=== PATIENT | female | born 1945 | race Hispanic/Latino ===

== ENCOUNTER 2017-02-14 14:15 | Emergency (ER) | payer MEDICARE ==
[2017-02-14 14:31] VITALS: BP 95/54
== END 2017-02-14 21:30 | disposition left against medical advice (07) ==
LOC: EDSEX → ED 14:15
DX: I95.9 Hypotension, unspecified (principal); Z53.21 Procedure and treatment not carried out due to patient leaving prior to being seen by health care provider
CPT/HCPCS: 93005; 93010

== ENCOUNTER 2017-05-31 11:19 | Inpatient (IN) | payer MEDICARE ==
[2017-05-31] MEDS ORDERED: NACL 0.9% 500 ML 500 ML IV ONE (12:38)
[2017-05-31 13:08] LABS: Eosinophils % (Auto) 1.9 % (0.0-4.3); Hematocrit 28.3 % (30.3-42.9); Hemoglobin 9.5 gm/dl (10.1-14.3); Mean Corpuscular HGB Conc 34 % (30-34); Mean Corpuscular Hemoglobin 29 pg (28-32); Mean Corpuscular Volume 88 fl (79-97); Platelet Count 146 K/mm3 (140-440); Red Blood Count 3.23 M/mm3 (3.65-5.03); Red Cell Distribution Width 16.2 % (13.2-15.2); White Blood Count 5.4 K/mm3 (4.5-11.0)
[2017-05-31 13:17] LABS: Albumin 3.5 g/dL (3.9-5); Albumin/Globulin Ratio 1.3 %; Bilirubin,Total 0.2 mg/dL (0.1-1.2); Calcium 9.1 mg/dL (8.4-10.2); Chloride 102.5 mmol/L (98-107); Potassium 4.3 mmol/L (3.6-5.0); Total Protein 6.2 g/dL (6.3-8.2)
[2017-05-31 13:20] LABS: INR 1.05 (0.87-1.13)
--- NOTE | 2017-05-31 13:31 | XRay Report ---
CHEST TWO VIEWS: 05/31/17 11:19:00 CLINICAL: Shortness of breath. COMPARISON: 05/01/17 FINDINGS: Stable cardiomegaly with pacer leads in heart. Mild central vascular prominence. A band of subsegmental atelectasis in the left lung base is new compared to the prior exam. New obliteration of the right os phrenic angle. The upper lung castle are clear. IMPRESSION: Left lower lobe subsegmental atelectasis and possible small right pleural effusion.No CHF or pneumonia.
--- NOTE | 2017-05-31 20:27 | Emergency Department Report ---
ED Shortness of Breath HPI - General Chief Complaint: Dyspnea/Respdistress Stated Complaint: BUILD UP OF FLUID Time Seen by Provider: 05/31/17 20:26 Source: patient Mode of arrival: Wheelchair Limitations: No Limitations - History of Present Illness MD Complaint: shortness of breath, cough -: Sudden Improves With: oxygen, rest, bronchodilators Worsens With: lying flat, exertion, coughing Known History Of: COPD, congestive heart failure Context: recent URI, medication noncompliance (patient states she ran out of her carvedilol 3 days ago. ) Associated Symptoms: fever, cough, sputum production Treatments Prior to Arrival: oxygen, bronchodilator - Related Data Home Oxygen Therapy: Yes Home Oxygen Amount: 2 Liters Home Medications Medication Instructions Recorded Confirmed Last Taken ALBUTEROL Inhaler [ProAir HFA 2 puff INHALATION BID 07/21/16 04/02/17 Unknown Inhaler] Gabapentin 300 mg PO TID 07/21/16 04/02/17 Unknown Advair Diskus 500-50 mcg 500 mg INHALATION BID 04/02/17 04/02/17 Unknown Coreg 25 mg PO BID 04/02/17 04/02/17 Unknown Eliquis 5 mg PO BID 04/02/17 04/02/17 Unknown Ferrous Sulfate 325 mg PO BID 04/02/17 04/02/17 Unknown Flecainide 100 mg PO BID 04/02/17 04/02/17 Unknown Lasix TAB 10 mg PO DAILY 04/02/17 04/02/17 Unknown Percocet 5/325 mg 5 mg PO TID PRN 04/02/17 04/02/17 Unknown Potassium 10 meq PO DAILY 04/02/17 04/02/17 Unknown Vitamin D (Nf) 2.125 mg PO QWEEK 04/02/17 04/02/17 Unknown Zoloft 50 mg PO DAILY 04/02/17 04/02/17 Unknown amLODIPine 10 mg PO DAILY 04/02/17 04/02/17 Unknown ALBUTEROL Inhaler [ProAir HFA 2 puff IH QID PRN 05/01/17 05/01/17 05/01/17 Inhaler] ALPRAZolam [Xanax TAB] 0.5 mg PO BID PRN 05/01/17 05/01/17 05/01/17 Apixaban [Eliquis] 5 mg PO BID 05/01/17 05/01/17 05/01/17 Carisoprodol [Soma] 350 mg PO QHS 05/01/17 05/01/17 04/30/17 Carvedilol [Coreg] 25 mg PO BID 05/01/17 05/01/17 05/01/17 Flecainide [Tambocor] 100 mg PO Q12H 05/01/17 05/01/17 05/01/17 Fluticasone/Salmeterol [Advair 1 each IH Q12H 05/01/17 05/01/17 05/01/17 500-50 Diskus] Furosemide [Lasix TAB] 20 mg PO QDAY 05/01/17 05/01/17 05/01/17 Gabapentin [Neurontin] 100 mg PO Q8HR 05/01/17 05/01/17 Unknown Potassium Chloride [K-Dur] 10 meq PO QDAY 05/01/17 05/01/17 05/01/17 Sertraline [Zoloft] 50 mg PO QDAY 05/01/17 05/01/17 05/01/17 amLODIPine [Norvasc] 10 mg PO DAILY 05/01/17 05/01/17 05/01/17 Previous Rx's Medication Instructions Recorded Last Taken Type Fluticasone/Salmeterol [Advair 1 puff IH BID #1 disk.w.dev 06/27/14 Unknown Rx Diskus 500-50 mcg] Cephalexin [Keflex] 500 mg PO BID #5 day 04/05/17 Unknown Rx ALBUTEROL NEB's [Proventil 0.083% 2.5 mg IH Q4HRT PRN #30 nebu 05/03/17 Unknown Rx NEBS] Acetaminophen [Acetaminophen TAB] 325 mg PO Q4H PRN #30 tablet 05/03/17 Unknown Rx Arformoterol Nebu [Brovana Nebu] 15 mcg IH Q12HRT #30 day 05/03/17 Unknown Rx Azithromycin [Zithromax TAB] 250 mg PO QDAY #2 day 05/03/17 Unknown Rx Budesonide [Pulmicort Respules] 0.5 mg IH Q12HRT #30 day 05/03/17 Unknown Rx Potassium Chloride [K-Dur] 10 meq PO QDAY #7 day 05/03/17 Unknown Rx oxyCODONE [Roxicodone TAB] 5 mg PO Q6H PRN #30 tablet 05/03/17 Unknown Rx predniSONE [Deltasone] 10 mg PO QDAY #30 day 05/03/17 Unknown Rx Allergies Allergy/AdvReac Type Severity Reaction Status Date / Time chocolate flavor Allergy Shortness Verified 05/31/17 14:02 of Breath peanut Allergy Hives Verified 05/31/17 14:02 milk AdvReac Unknown Verified 05/31/17 14:02 morphine AdvReac Unknown Verified 05/31/17 14:02 animal dander Allergy Unknown Uncoded 07/09/15 11:56 dust Allergy Unknown Uncoded 07/09/15 11:56 mold Allergy Shortness Uncoded 07/09/15 11:56 of Breath peanuts Allergy Shortness Uncoded 07/09/15 11:56 of Breath perfumes Allergy Shortness Uncoded 07/09/15 11:56 of Breath ED Review of Systems ROS: Stated complaint: BUILD UP OF FLUID Other details as noted in HPI Comment: All other systems reviewed and negative Constitutional: see HPI, chills, fever, weakness Eyes: as per HPI ENT: as per HPI, throat pain, congestion Respiratory: see HPI, cough, shortness of breath, SOB with exertion, SOB at rest , wheezing Cardiovascular: as per HPI, edema Endocrine: no symptoms reported Gastrointestinal: as per HPI Genitourinary: as per HPI Musculoskeletal: as per HPI Skin: as per HPI Neurological: as per HPI Psychiatric: as per HPI Hematological/Lymphatic: as per HPI ED Past Medical Hx - Past Medical History Hx Hypertension: Yes Hx Congestive Heart Failure: Yes Hx Arthritis: Yes (RHEUMATOID) Hx Asthma: Yes Hx COPD: Yes Additional medical history: Afib, pacemaker - Surgical History Hx Pacemaker: Yes Additional Surgical History: Removal of skin cancer, Tubal Ligation. Parathyroidectomy, Pacemaker - Social History Smoking Status: Never Smoker Substance Use Type: None - Medications Home Medications: Home Medications Medication Instructions Recorded Confirmed Last Taken Type Fluticasone/Salmeterol [Advair 1 puff IH BID #1 disk.w.dev 06/27/14 04/02/17 Unknown Rx Diskus 500-50 mcg] ALBUTEROL Inhaler [ProAir HFA 2 puff INHALATION BID 07/21/16 04/02/17 Unknown History Inhaler] Gabapentin 300 mg PO TID 07/21/16 04/02/17 Unknown History Advair Diskus 500-50 mcg 500 mg INHALATION BID 04/02/17 04/02/17 Unknown History Coreg 25 mg PO BID 04/02/17 04/02/17 Unknown History Eliquis 5 mg PO BID 04/02/17 04/02/17 Unknown History Ferrous Sulfate 325 mg PO BID 04/02/17 04/02/17 Unknown History Flecainide 100 mg PO BID 04/02/17 04/02/17 Unknown History Lasix TAB 10 mg PO DAILY 04/02/17 04/02/17 Unknown History Percocet 5/325 mg 5 mg PO TID PRN 04/02/17 04/02/17 Unknown History Potassium 10 meq PO DAILY 04/02/17 04/02/17 Unknown History Vitamin D (Nf) 2.125 mg PO QWEEK 04/02/17 04/02/17 Unknown History Zoloft 50 mg PO DAILY 04/02/17 04/02/17 Unknown History amLODIPine 10 mg PO DAILY 04/02/17 04/02/17 Unknown History Cephalexin [Keflex] 500 mg PO BID #5 day 04/05/17 Unknown Rx ALBUTEROL Inhaler [ProAir HFA 2 puff IH QID PRN 05/01/17 05/01/17 05/01/17 History Inhaler] ALPRAZolam [Xanax TAB] 0.5 mg PO BID PRN 05/01/17 05/01/17 05/01/17 History Apixaban [Eliquis] 5 mg PO BID 05/01/17 05/01/17 05/01/17 History Carisoprodol [Soma] 350 mg PO QHS 05/01/17 05/01/17 04/30/17 History Carvedilol [Coreg] 25 mg PO BID 05/01/17 05/01/17 05/01/17 History Flecainide [Tambocor] 100 mg PO Q12H 05/01/17 05/01/17 05/01/17 History Fluticasone/Salmeterol [Advair 1 each IH Q12H 05/01/17 05/01/17 05/01/17 History 500-50 Diskus] Furosemide [Lasix TAB] 20 mg PO QDAY 05/01/17 05/01/1717 History Gabapentin [Neurontin] 100 mg PO Q8HR 05/01/17 05/01/17 Unknown History Potassium Chloride [K-Dur] 10 meq PO QDAY 05/01/17 05/01/17 05/01/17 History Sertraline [Zoloft] 50 mg PO QDAY 05/01/17 05/01/17 05/01/17 History amLODIPine [Norvasc] 10 mg PO DAILY 05/01/17 05/01/17 05/01/17 History ALBUTEROL NEB's [Proventil 0.083% 2.5 mg IH Q4HRT PRN #30 nebu 05/03/17 Unknown Rx NEBS] Acetaminophen [Acetaminophen TAB] 325 mg PO Q4H PRN #30 tablet 05/03/17 Unknown Rx Arformoterol Nebu [Brovana Nebu] 15 mcg IH Q12HRT #30 day 05/03/17 Unknown Rx Azithromycin [Zithromax TAB] 250 mg PO QDAY #2 day 05/03/17 Unknown Rx Budesonide [Pulmicort Respules] 0.5 mg IH Q12HRT #30 day 05/03/17 Unknown Rx Potassium Chloride [K-Dur] 10 meq PO QDAY #7 day 05/03/17 Unknown Rx oxyCODONE [Roxicodone TAB] 5 mg PO Q6H PRN #30 tablet 05/03/17 Unknown Rx predniSONE [Deltasone] 10 mg PO QDAY #30 day 05/03/17 Unknown Rx ED Physical Exam - General Limitations: No Limitations General appearance: alert, in no apparent distress - Head Head exam: Present: atraumatic, normocephalic - Eye Eye exam: Present: normal appearance - ENT ENT exam: Present: mucous membranes dry, other (mild erythema of the pharynx. No exudate) - Neck Neck exam: Present: normal inspection - Respiratory Respiratory exam: Present: wheezes, rales, rhonchi - Cardiovascular Cardiovascular Exam: Present: regular rate, normal rhythm, systolic murmur, other (bilateral lower extremity edema noted, 3+ pitting) - GI/Abdominal GI/Abdominal exam: Present: soft, normal bowel sounds - Extremities Exam Extremities exam: Present: normal inspection - Back Exam Back exam: Present: normal inspection - Neurological Exam Neurological exam: Present: alert, oriented X3 - Psychiatric Psychiatric exam: Present: normal affect, normal mood - Skin Skin exam: Present: warm, dry, intact, normal color. Absent: rash ED Course Vital Signs 05/31/17 05/31/17 05/31/17 12:28 19:45 20:30 Temperature 98.6 F Pulse Rate 88 Respiratory 18 20 Rate Blood Pressure 108/45 149/64 O2 Sat by Pulse 89 95 97 Oximetry 05/31/17 05/31/17 20:36 20:45 Temperature Pulse Rate 91 H Respiratory 21 Rate Blood Pressure 149/64 149/69 O2 Sat by Pulse 96 83 L Oximetry ED Medical Decision Making - Lab Data Result diagrams: 05/31/17 12:43 05/31/17 12:43 - EKG Data -: EKG Interpreted by Me - EKG Data Interpretation: no acute changes - Medical Decision Making Hospitalist consult for admission. Hospitalist agreed to admit. - Differential Diagnosis cp/ sob. chf exac. copd exac, Critical care attestation.: If time is entered above; I have spent that time in minutes in the direct care of this critically ill patient, excluding procedure time. ED Disposition Clinical Impression: Shortness of breath, Pleural effusion, COPD exacerbation, CHF (congestive heart failure), COPD (chronic obstructive pulmonary disease), Elevated brain natriuretic peptide (BNP) level Disposition: 09 OP ADMIT IP TO THIS HOSP Is pt being admited?: Yes Does the pt Need Aspirin: No Condition: Serious Time of Disposition: 23:13
[2017-05-31 22:29] LABS: Creatine Kinase MB 2.2 ng/mL (0.0-4.0)
[2017-05-31 22:30] LABS: Creatine Kinase 29 units/L (30-135)
[2017-05-31] MEDS ORDERED: LASIX IV ONE (22:59)
[2017-05-31] MEDS ORDERED: ASPIRIN PO ONE (23:02)
[2017-05-31 23:44] LABS: Bacteria,Urine 1+ /HPF (Negative); Bilirubin,Urine NEG (Negative); Blood,Urine NEG (Negative); Ketones,Urine NEG (Negative); Leukocyte Esterase,Urine TR (Negative); Nitrite,Urine NEG (Negative); Protein,Urine <15 mg/dL mg/dL (Negative); Urobilinogen,Urine < 2.0 mg/dL (<2.0)
--- NOTE | 2017-05-31 23:59 | History and Physical Report ---
History of Present Illness Date of examination: 05/31/17 History of present illness: 71-year-old woman with a history of hypertension, A. fib, COPD, spinal stenosis and sciatica comes to the emergency room with complaints of shortness of breath. She complains of dyspnea on exertion, lower extremity edema, PND and orthopnea, stated that her symptoms started yesterday. Also complaining of cough productive of yellow phlegm, wheezing Review Of Systems: Constitutional: no weight loss Ears, eyes, nose, mouth and throat: no nasal congestion, no nasal discharge, no sinus pressure, blurry vision, diplopia Neck: No neck pain or rigidity. Cardiovascular: no chest pain, orthopnea, palpitations Respiratory:+ shortness of breath, cough Gastrointestinal: no abdominal pain, hematochezia Genitourinary : no dysuria, frequency , hematuria Musculoskeletal: no muscle ache Integumentary: no rash, no pruritis Neurological: no parathesias, focal weakness Endocrine: no cold or heat intolerance, no polyuria or polydipsia Hematologic/Lymphatic: no easy bruising, no easy bleeding, no gland swelling Allergic/Immunologic: no urticaria, no angioedema. PAST SURGICAL HISTORY: Tubal ligation, parathyroidectomy, removal of skin cancer SOCIAL HISTORY: Denies alcohol, tobacco, drugs FAMILY HISTORY: Hypertension Medications and Allergies Allergies Allergy/AdvReac Type Severity Reaction Status Date / Time chocolate flavor Allergy Shortness Verified 05/31/17 14:02 of Breath peanut Allergy Hives Verified 05/31/17 14:02 milk AdvReac Unknown Verified 05/31/17 14:02 morphine AdvReac Unknown Verified 05/31/17 14:02 animal dander Allergy Unknown Uncoded 07/09/15 11:56 dust Allergy Unknown Uncoded 07/09/15 11:56 mold Allergy Shortness Uncoded 07/09/15 11:56 of Breath peanuts Allergy Shortness Uncoded 07/09/15 11:56 of Breath perfumes Allergy Shortness Uncoded 07/09/15 11:56 of Breath Home Medications Medication Instructions Recorded Confirmed Last Taken Type Fluticasone/Salmeterol [Advair 1 puff IH BID #1 disk.w.dev 06/27/14 04/02/17 Unknown Rx Diskus 500-50 mcg] ALBUTEROL Inhaler [ProAir HFA 2 puff INHALATION BID 07/21/16 04/02/17 Unknown History Inhaler] Gabapentin 300 mg PO TID 07/21/16 04/02/17 Unknown History Advair Diskus 500-50 mcg 500 mg INHALATION BID 04/02/17 04/02/17 Unknown History Coreg 25 mg PO BID 04/02/17 04/02/17 Unknown History Eliquis 5 mg PO BID 04/02/17 04/02/17 Unknown History Ferrous Sulfate 325 mg PO BID 04/02/17 04/02/17 Unknown History Flecainide 100 mg PO BID 04/02/17 04/02/17 Unknown History Lasix TAB 10 mg PO DAILY 04/02/17 04/02/17 Unknown History Percocet 5/325 mg 5 mg PO TID PRN 04/02/17 04/02/17 Unknown History Potassium 10 meq PO DAILY 04/02/17 04/02/17 Unknown History Vitamin D (Nf) 2.125 mg PO QWEEK 04/02/17 04/02/17 Unknown History Zoloft 50 mg PO DAILY 04/02/17 04/02/17 Unknown History amLODIPine 10 mg PO DAILY 04/02/17 04/02/17 Unknown History Cephalexin [Keflex] 500 mg PO BID #5 day 04/05/17 Unknown Rx ALBUTEROL Inhaler [ProAir HFA 2 puff IH QID PRN 05/01/17 05/01/17 05/01/17 History Inhaler] ALPRAZolam [Xanax TAB] 0.5 mg PO BID PRN 05/01/17 05/01/17 05/01/17 History Apixaban [Eliquis] 5 mg PO BID 05/01/17 05/01/17 05/01/17 History Carisoprodol [Soma] 350 mg PO QHS 05/01/17 05/01/17 04/30/17 History Carvedilol [Coreg] 25 mg PO BID 05/01/17 05/01/17 05/01/17 History Flecainide [Tambocor] 100 mg PO Q12H 05/01/17 05/01/17 05/01/17 History Fluticasone/Salmeterol [Advair 1 each IH Q12H 05/01/17 05/01/17 05/01/17 History 500-50 Diskus] Furosemide [Lasix TAB] 20 mg PO QDAY 05/01/17 05/01/17 05/01/17 History Gabapentin [Neurontin] 100 mg PO Q8HR 05/01/17 05/01/17 Unknown History Potassium Chloride [K-Dur] 10 meq PO QDAY 05/01/17 05/01/17 05/01/17 History Sertraline [Zoloft] 50 mg PO QDAY 05/01/17 05/01/17 05/01/17 History amLODIPine [Norvasc] 10 mg PO DAILY 05/01/17 05/01/17 05/01/17 History ALBUTEROL NEB's [Proventil 0.083% 2.5 mg IH Q4HRT PRN #30 nebu 05/03/17 Unknown Rx NEBS] Acetaminophen [Acetaminophen TAB] 325 mg PO Q4H PRN #30 tablet 05/03/17 Unknown Rx Arformoterol Nebu [Brovana Nebu] 15 mcg IH Q12HRT #30 day 05/03/17 Unknown Rx Azithromycin [Zithromax TAB] 250 mg PO QDAY #2 day 05/03/17 Unknown Rx Budesonide [Pulmicort Respules] 0.5 mg IH Q12HRT #30 day 05/03/17 Unknown Rx Potassium Chloride [K-Dur] 10 meq PO QDAY #7 day 05/03/17 Unknown Rx oxyCODONE [Roxicodone TAB] 5 mg PO Q6H PRN #30 tablet 05/03/17 Unknown Rx predniSONE [Deltasone] 10 mg PO QDAY #30 day 05/03/17 Unknown Rx Exam - Physical Exam Narrative exam: Gen. appearance: Patient lying in bed in no acute distress HEENT: Normocephalic/atraumatic, pupils equal round reactive to light, extra alkaline movement intact, no scleral icterus, no JVD or thyromegaly or nodule, neck is supple, mucous membrane moist, no erythema or exudate Heart: S1-S2, regular rate and rhythm Lungs: Crackles breathing comfortable Abdomen: Positive bowel sounds, nontender, nondistended, no organomegaly Extremities: 3+ edema up to knees, cyanosis, clubbing Neuro:: Oriented 3 , cranial nerves II-12 intact, speech, motor intact Skin: No rash, nodules, warm dry - Constitutional Vitals: Temp Pulse Resp BP Pulse Ox 98.6 F 83 13 147/63 93 05/31/17 12:28 05/31/17 21:00 05/31/17 21:00 05/31/17 23:30 05/31/17 23:30 Results - Labs CBC & Chem 7: 05/31/17 12:43 05/31/17 12:43 Labs: Abnormal lab results 05/31/17 05/31/17 05/31/17 Range/Units 12:43 12:43 12:43 RBC 3.23 L (3.65-5.03) M/mm3 Hgb 9.5 L (10.1-14.3) gm/dl Hct 28.3 L (30.3-42.9) % RDW 16.2 H (13.2-15.2) % [place] % (Auto) 10.7 H (0.0-7.3) % D-Dimer (0-234) ng/mlDDU VBG pH (7.320-7.420) BUN 31 H (7-17) mg/dL Creatinine 1.6 H (0.7-1.2) mg/dL AST 49 H (5-40) units/L ALT 81 H (7-56) units/L Alkaline Phosphatase 176 H (35-129) units/L Total Creatine Kinase (30-135) units/L CK-MB (CK-2) Rel Index (0-4) NT-Pro-B Natriuret Pep 1705 H (0-900) pg/mL Total Protein 6.2 L (6.3-8.2) g/dL Albumin 3.5 L (3.9-5) g/dL Urine WBC (Auto) (0.0-6.0) /HPF 05/31/17 05/31/17 05/31/17 Range/Units 12:43 21:51 21:51 RBC (3.65-5.03) M/mm3 Hgb (10.1-14.3) gm/dl Hct (30.3-42.9) % RDW (13.2-15.2) % [place] % (Auto) (0.0-7.3) % D-Dimer 297.20 H (0-234) ng/mlDDU VBG pH 7.255 L (7.320-7.420) BUN (7-17) mg/dL Creatinine (0.7-1.2) mg/dL AST (5-40) units/L ALT (7-56) units/L Alkaline Phosphatase (35-129) units/L Total Creatine Kinase 29 L (30-135) units/L CK-MB (CK-2) Rel Index 7.5 H (0-4) NT-Pro-B Natriuret Pep 1613 H (0-900) pg/mL Total Protein (6.3-8.2) g/dL Albumin (3.9-5) g/dL Urine WBC (Auto) (0.0-6.0) /HPF 05/31/17 Range/Units 22:46 RBC (3.65-5.03) M/mm3 Hgb (10.1-14.3) gm/dl Hct (30.3-42.9) % RDW (13.2-15.2) % [place] % (Auto) (0.0-7.3) % D-Dimer (0-234) ng/mlDDU VBG pH (7.320-7.420) BUN (7-17) mg/dL Creatinine (0.7-1.2) mg/dL AST (5-40) units/L ALT (7-56) units/L Alkaline Phosphatase (35-129) units/L Total Creatine Kinase (30-135) units/L CK-MB (CK-2) Rel Index (0-4) NT-Pro-B Natriuret Pep (0-900) pg/mL Total Protein (6.3-8.2) g/dL Albumin (3.9-5) g/dL Urine WBC (Auto) 9.0 H (0.0-6.0) /HPF - Imaging and Cardiology EKG: image reviewed Chest x-ray: image reviewed Assessment and Plan Assessment Acute and chronic CHF exacerbation, diastolic dysfunction Acute renal insufficiency COPD Hypertension A. fib Plan Admit to medicine Diurese with IV Lasix Continue beta gary, aspirin, FABIEN inhibitor secondary to increasing kidney function, check cardiac enzymes, echo, consult cardiology Continue appropriate outpatient medications DVT prophylaxis with eliquis
[2017-06-01] MEDS ORDERED: TYLENOL PO PRN ×2 (00:52→01:01)
[2017-06-01] MEDS ORDERED: ZOFRAN IV PRN (01:01)
[2017-06-01] MEDS ORDERED: DULCOLAX PR PRN (01:01)
[2017-06-01] MEDS ORDERED: MILK OF MAGNESIA PO PRN (01:01)
[2017-06-01] MEDS: LASIX IV SCH ×2 (07:00→17:43)
[2017-06-01] MEDS: NEURONTIN PO SCH ×3 (07:00→22:50)
[2017-06-01] MEDS: BROVANA NEBU IH SCH ×2 (07:10→21:57)
[2017-06-01] MEDS: PULMICORT IH SCH ×2 (07:10→21:57)
--- NOTE | 2017-06-01 08:56 | Progress Note ---
Assessment and Plan Assessment and plan: Patient is a 71-year-old woman with a plethora of comorbidities including CHF, COPD, atrial fibrillation, sick sinus syndrome who presents with shortness of breath. Two-view chest x-ray showed left lower lobe subsegmental atelectasis and possible small right pleural effusion, no CHF or pneumonia. Acute and chronic CHF exacerbation, diastolic dysfunction Acute renal insufficiency COPD Hypertension A. fib Plan Admit to medicine Diurese with IV Lasix Continue beta gary, aspirin, FABIEN inhibitor secondary to increasing kidney function, check cardiac enzymes, echo, consult cardiology Continue appropriate outpatient medications DVT prophylaxis with eliquis History Interval history: Patient was seen and examined. Follow-up on current diagnosis/shortness of breath symptoms. Overnight uneventful. Patient denies any chest pain, nausea/ vomiting or severe headaches. Imaging, nursing note, chart, labs and old chart reviewed. Discussed with patient. Hospitalist Physical - Physical exam Narrative exam: GEN: WDWN, NAD, AWAKE, ALERT, ORIENTATED 3 HEENT: NCAT, EOMI, PERRL, OP Clear NECK: supple, no adenopathy, no thyromegaly, no JVD CVS/HEART: RRR, NORMAL S1S2, NO JVD, pulses present bilaterally CHEST/LUNGS: Symmetrical chest expansion, diminished breath sounds but adequate air entry bilaterally GI/Abdomen: soft, NTND, good bowel sounds, no guarding or rebound /Bladder: no suprapubic tenderness, no CVA or paraspinal tenderness EXT/Skin: no c/c/e, no obvious rash MSK: FROM x 4 Neuro: CN 2-12 grossly intact, no new focal deficits Psych: calm - Constitutional Vitals: Temp Pulse Resp BP Pulse Ox 98.3 F 81 20 141/82 93 06/01/17 04:51 06/01/17 08:15 06/01/17 07:37 06/01/17 04:51 06/01/17 07:07 Results - Labs CBC & Chem 7: 05/31/17 12:43 05/31/17 12:43 Labs: Laboratory Last Values WBC 5.4 K/mm3 (4.5-11.0) 05/31/17 12:43 RBC 3.23 M/mm3 (3.65-5.03) L 05/31/17 12:43 Hgb 9.5 gm/dl (10.1-14.3) L 05/31/17 12:43 Hct 28.3 % (30.3-42.9) L 05/31/17 12:43 MCV 88 fl (79-97) 05/31/17 12:43 MCH 29 pg (28-32) 05/31/17 12:43 MCHC 34 % (30-34) 05/31/17 12:43 RDW 16.2 % (13.2-15.2) H 05/31/17 12:43 Plt Count 146 K/mm3 (140-440) 05/31/17 12:43 Lymph % (Auto) 23.6 % (13.4-35.0) 05/31/17 12:43 [place] % (Auto) 10.7 % (0.0-7.3) H 05/31/17 12:43 Eos % (Auto) 1.9 % (0.0-4.3) 05/31/17 12:43 Baso % (Auto) 1.0 % (0.0-1.8) 05/31/17 12:43 Lymph # 1.3 K/mm3 (1.2-5.4) 05/31/17 12:43 [place] # 0.6 K/mm3 (0.0-0.8) 05/31/17 12:43 Eos # 0.1 K/mm3 (0.0-0.4) 05/31/17 12:43 Baso # 0.1 K/mm3 (0.0-0.1) 05/31/17 12:43 Seg Neutrophils % 62.8 % (40.0-70.0) 05/31/17 12:43 Seg Neutrophils # 3.4 K/mm3 (1.8-7.7) 05/31/17 12:43 PT 14.2 Sec. (12.2-14.9) 05/31/17 12:43 INR 1.05 (0.87-1.13) 05/31/17 12:43 D-Dimer 297.20 ng/mlDDU (0-234) H 05/31/17 21:51 VBG pH 7.255 (7.320-7.420) L 05/31/17 12:43 Sodium 140 mmol/L (137-145) 05/31/17 12:43 Potassium 4.3 mmol/L (3.6-5.0) 05/31/17 12:43 Chloride 102.5 mmol/L (98-107) 05/31/17 12:43 Carbon Dioxide 28 mmol/L (22-30) 05/31/17 12:43 Anion Gap 14 mmol/L 05/31/17 12:43 BUN 31 mg/dL (7-17) H 05/31/17 12:43 Creatinine 1.6 mg/dL (0.7-1.2) H 05/31/17 12:43 Estimated GFR 32 ml/min 05/31/17 12:43 BUN/Creatinine Ratio 19 % 05/31/17 12:43 Glucose 99 mg/dL (65-100) 05/31/17 12:43 Lactic Acid 0.70 mmol/L (0.7-2.0) 05/31/17 17:12 Calcium 9.1 mg/dL (8.4-10.2) 05/31/17 12:43 Total Bilirubin 0.20 mg/dL (0.1-1.2) 05/31/17 12:43 AST 49 units/L (5-40) H 05/31/17 12:43 ALT 81 units/L (7-56) H 05/31/17 12:43 Alkaline Phosphatase 176 units/L (35-129) H 05/31/17 12:43 Total Creatine Kinase 29 units/L (30-135) L 05/31/17 21:51 CK-MB (CK-2) 2.2 ng/mL (0.0-4.0) 05/31/17 21:51 CK-MB (CK-2) Rel Index 7.5 (0-4) H 05/31/17 21:51 Troponin T < 0.010 ng/mL (0.00-0.029) 05/31/17 21:51 NT-Pro-B Natriuret Pep 1613 pg/mL (0-900) H 05/31/17 21:51 Total Protein 6.2 g/dL (6.3-8.2) L 05/31/17 12:43 Albumin 3.5 g/dL (3.9-5) L 05/31/17 12:43 Albumin/Globulin Ratio 1.3 % 05/31/17 12:43 Urine Color Straw (Yellow) 05/31/17 22:46 Urine Turbidity Clear (Clear) 05/31/17 22:46 Urine pH 5.0 (5.0-7.0) 05/31/17 22:46 Ur Specific [place] 1.010 (1.003-1.030) 05/31/17 22:46 Urine Protein <15 mg/dl mg/dL (Negative) 05/31/17 22:46 Urine Glucose (UA) Neg mg/dL (Negative) 05/31/17 22:46 Urine Ketones Neg mg/dL (Negative) 05/31/17 22:46 Urine Blood Neg (Negative) 05/31/17 22:46 Urine Nitrite Neg (Negative) 05/31/17 22:46 Urine Bilirubin Neg (Negative) 05/31/17 22:46 Urine Urobilinogen < 2.0 mg/dL (<2.0) 05/31/17 22:46 Ur Leukocyte Esterase Tr (Negative) 05/31/17 22:46 Urine WBC (Auto) 9.0 /HPF (0.0-6.0) H 05/31/17 22:46 Urine RBC (Auto) 1.0 /HPF (0.0-6.0) 05/31/17 22:46 U Epithel Cells (Auto) < 1.0 /HPF (0-13.0) 05/31/17 22:46 Urine Bacteria (Auto) 1+ /HPF (Negative) 05/31/17 22:46
[2017-06-01] MEDS ORDERED: LOVENOX SUB-Q SCH (10:00)
[2017-06-01] MEDS ORDERED: ADVAIR INHALATION SCH (10:00)
[2017-06-01] MEDS: COREG PO SCH ×2 (10:26→22:50)
[2017-06-01] MEDS: ELIQUIS PO SCH ×2 (10:26→22:50)
--- NOTE | 2017-06-01 11:52 | Consultation ---
History of Present Illness Consult date: 06/01/17 Consult reason: shortness of breath History of present illness: The patient is a 71-year-old woman who presented to the hospital with specific complaints of shortness of breath and productive cough. She was reported to have an oxygen saturation of 88% on hospital presentation. Cardiac consultation was requested for "CHF". The patient has a history of tachybradycardia syndrome, and underwent dual- chamber pacemaker implantation 10 months ago. At that time she also underwent cardiac catheterization which revealed angiographically normal coronary arteries , normal left ventricle systolic function with ejection fraction greater 55%. On this presentation, the ECG is an atrial paced rhythm, negative QRS complexes , borderline inferior Q waves with no acute ischemic changes. Chest x-ray reveals clear lungs with no evidence of edema or infiltrate. There is a small right pleural effusion of uncertain significance. Currently the patient is on the telemetry floor, is comfortable on bed rest, no complaints of chest pain or further shortness of breath. Past History Past Medical History: hypertension Medications and Allergies Allergies Allergy/AdvReac Type Severity Reaction Status Date / Time chocolate flavor Allergy Shortness Verified 05/31/17 14:02 of Breath peanut Allergy Hives Verified 05/31/17 14:02 milk AdvReac Unknown Verified 05/31/17 14:02 morphine AdvReac Unknown Verified 05/31/17 14:02 animal dander Allergy Unknown Uncoded 07/09/15 11:56 dust Allergy Unknown Uncoded 07/09/15 11:56 mold Allergy Shortness Uncoded 07/09/15 11:56 of Breath peanuts Allergy Shortness Uncoded 07/09/15 11:56 of Breath perfumes Allergy Shortness Uncoded 07/09/15 11:56 of Breath Home Medications Medication Instructions Recorded Confirmed Last Taken Type Fluticasone/Salmeterol [Advair 1 puff IH BID #1 disk.w.dev 06/27/14 04/02/17 Unknown Rx Diskus 500-50 mcg] ALBUTEROL Inhaler [ProAir HFA 2 puff INHALATION BID 07/21/16 04/02/17 Unknown History Inhaler] Gabapentin 300 mg PO TID 07/21/16 04/02/17 Unknown History Advair Diskus 500-50 mcg 500 mg INHALATION BID 04/02/17 04/02/17 Unknown History Coreg 25 mg PO BID 04/02/17 04/02/17 Unknown History Eliquis 5 mg PO BID 04/02/17 04/02/17 Unknown History Ferrous Sulfate 325 mg PO BID 04/02/17 04/02/17 Unknown History Flecainide 100 mg PO BID 04/02/17 04/02/17 Unknown History Lasix TAB 10 mg PO DAILY 04/02/17 04/02/17 Unknown History Percocet 5/325 mg 5 mg PO TID PRN 04/02/17 04/02/17 Unknown History Potassium 10 meq PO DAILY 04/02/17 04/02/17 Unknown History Vitamin D (Nf) 2.125 mg PO QWEEK 04/02/17 04/02/17 Unknown History Zoloft 50 mg PO DAILY 04/02/17 04/02/17 Unknown History amLODIPine 10 mg PO DAILY 04/02/17 04/02/17 Unknown History Cephalexin [Keflex] 500 mg PO BID #5 day 04/05/17 Unknown Rx ALBUTEROL Inhaler [ProAir HFA 2 puff IH QID PRN 05/01/17 05/01/17 05/01/17 History Inhaler] ALPRAZolam [Xanax TAB] 0.5 mg PO BID PRN 05/01/17 05/01/17 05/01/17 History Apixaban [Eliquis] 5 mg PO BID 05/01/17 05/01/17 05/01/17 History Carisoprodol [Soma] 350 mg PO QHS 05/01/17 05/01/17 04/30/17 History Carvedilol [Coreg] 25 mg PO BID 05/01/17 05/01/17 05/01/17 History Flecainide [Tambocor] 100 mg PO Q12H 05/01/17 05/01/17 05/01/17 History Fluticasone/Salmeterol [Advair 1 each IH Q12H 05/01/17 05/01/17 05/01/17 History 500-50 Diskus] Furosemide [Lasix TAB] 20 mg PO QDAY 05/01/17 05/01/17 05/01/17 History Gabapentin [Neurontin] 100 mg PO Q8HR 05/01/17 05/01/17 Unknown History Potassium Chloride [K-Dur] 10 meq PO QDAY 10/05/01/17 05/01/17 History Sertraline [Zoloft] 50 mg PO QDAY 05/01/17 05/01/17 05/01/17 History amLODIPine [Norvasc] 10 mg PO DAILY 05/01/17 05/01/17 05/01/17 History ALBUTEROL NEB's [Proventil 0.083% 2.5 mg IH Q4HRT PRN #30 nebu 05/03/17 Unknown Rx NEBS] Acetaminophen [Acetaminophen TAB] 325 mg PO Q4H PRN #30 tablet 05/03/17 Unknown Rx Arformoterol Nebu [Brovana Nebu] 15 mcg IH Q12HRT #30 day 05/03/17 Unknown Rx Azithromycin [Zithromax TAB] 250 mg PO QDAY #2 day 05/03/17 Unknown Rx Budesonide [Pulmicort Respules] 0.5 mg IH Q12HRT #30 day 05/03/17 Unknown Rx Potassium Chloride [K-Dur] 10 meq PO QDAY #7 day 05/03/17 Unknown Rx oxyCODONE [Roxicodone TAB] 5 mg PO Q6H PRN #30 tablet 05/03/17 Unknown Rx predniSONE [Deltasone] 10 mg PO QDAY #30 day 05/03/17 Unknown Rx Active Meds: Active Medications Acetaminophen (Tylenol) 650 mg PO Q4H PRN PRN Reason: Pain MILD(1-3)/Fever >100.5/KHAN Alprazolam (Xanax) 0.5 mg PO BID PRN PRN Reason: Anxiety Apixaban (Eliquis) 5 mg PO BID DAVID PRN Reason: Protocol Last Admin: 06/01/17 10:26 Dose: 5 mg Arformoterol Tartrate (Brovana Nebu) 15 mcg IH Q12HRT [facility] Last Admin: 06/01/17 07:10 Dose: 15 mcg Bisacodyl (Dulcolax) 10 mg AL QDAY PRN PRN Reason: Constipation unrelieved by MOM Budesonide (Pulmicort) 1 mg IH Q12HRT [facility] Last Admin: 06/01/17 07:10 Dose: 0.5 mg Carvedilol (Coreg) 25 mg PO BID [facility] Last Admin: 06/01/17 10:26 Dose: 25 mg Furosemide (Lasix) 40 mg IV BID@0600,1800 [facility] Last Admin: 06/01/17 07:00 Dose: 40 mg Gabapentin (Neurontin) 100 mg PO Q8HR [facility] Last Admin: 06/01/17 07:00 Dose: 100 mg Magnesium Hydroxide (Milk Of Magnesia) 30 ml PO Q4H PRN PRN Reason: Constipation Ondansetron HCl (Zofran) 4 mg IV Q8H PRN PRN Reason: N/V unrelieved by Reglan Review of Systems Cardiovascular: shortness of breath, no chest pain, no orthopnea, no palpitations, no rapid/irregular heart beat, no edema, no syncope, no lightheadedness Physical Examination Vital Signs Temp Pulse Resp BP Pulse Ox 98.6 F 88 18 108/45 89 05/31/17 12:28 05/31/17 12:28 05/31/17 12:28 05/31/17 12:28 05/31/17 12:28 General appearance: no acute distress HEENT: Positive: PERRL Neck: Positive: neck supple Cardiac: Positive: Reg Rate and Rhythm Lungs: Positive: Decreased Breath Sounds Neuro: Positive: Grossly Intact Abdomen: Positive: Soft Female genitourinary: deferred Skin: Positive: Clear Extremities: Present: edema (trace) Results 05/31/17 12:43 05/31/17 12:43 Cardiac Enzymes 05/31/17 05/31/17 Range/Units 12:43 21:51 AST 49 H (5-40) units/L CK-MB (CK-2) 2.2 (0.0-4.0) ng/mL Coagulation 05/31/17 Range/Units 12:43 PT 14.2 (12.2-14.9) Sec. INR 1.05 (0.87-1.13) CBC 05/31/17 Range/Units 12:43 WBC 5.4 (4.5-11.0) K/mm3 RBC 3.23 L (3.65-5.03) M/mm3 Hgb 9.5 L (10.1-14.3) gm/dl Hct 28.3 L (30.3-42.9) % Plt Count 146 (140-440) K/mm3 Lymph # 1.3 (1.2-5.4) K/mm3 [place] # 0.6 (0.0-0.8) K/mm3 Eos # 0.1 (0.0-0.4) K/mm3 Baso # 0.1 (0.0-0.1) K/mm3 Comprehensive Metabolic Panel 05/31/17 Range/Units 12:43 Sodium 140 (137-145) mmol/L Potassium 4.3 (3.6-5.0) mmol/L Chloride 102.5 (98-107) mmol/L Carbon Dioxide 28 (22-30) mmol/L BUN 31 H (7-17) mg/dL Creatinine 1.6 H (0.7-1.2) mg/dL Glucose 99 (65-100) mg/dL Calcium 9.1 (8.4-10.2) mg/dL AST 49 H (5-40) units/L ALT 81 H (7-56) units/L Alkaline Phosphatase 176 H (35-129) units/L Total Protein 6.2 L (6.3-8.2) g/dL Albumin 3.5 L (3.9-5) g/dL EKG interpretations - Telemetry EKG Rhythm: Sinus Rhythm Assessment and Plan - Patient Problems (1) Shortness of breath Current Visit: Yes Status: Acute Plan to address problem: Patient's presenting shortness of breath and hypoxemia is likely of pulmonary etiology. We'll get an echocardiogram for left ventricular function and valvular function reassessment. Otherwise, I'll recommend pulmonary consultation and assessment.
[2017-06-02] MEDS: PERCOCET 5/325 PO PRN ×2 (00:02→10:20)
[2017-06-02 05:36] LABS: Basophils % (Auto) 0.3 % (0.0-1.8); Eosinophils % (Auto) 0.1 % (0.0-4.3); Hematocrit 26.2 % (30.3-42.9); Hemoglobin 9.2 gm/dl (10.1-14.3); Mean Corpuscular HGB Conc 35 % (30-34); Mean Corpuscular Hemoglobin 30 pg (28-32); Mean Corpuscular Volume 85 fl (79-97); Platelet Count 157 K/mm3 (140-440); Red Blood Count 3.09 M/mm3 (3.65-5.03); Red Cell Distribution Width 15.9 % (13.2-15.2); White Blood Count 4.8 K/mm3 (4.5-11.0)
[2017-06-02] MEDS: LASIX IV SCH ×2 (05:39→20:00)
[2017-06-02] MEDS: NEURONTIN PO SCH ×3 (05:40→22:47)
[2017-06-02 05:55] LABS: Calcium 9.5 mg/dL (8.4-10.2); Chloride 96.7 mmol/L (98-107); Potassium 3.2 mmol/L (3.6-5.0)
[2017-06-02] MEDS: BROVANA NEBU IH SCH ×2 (07:12→20:50)
[2017-06-02] MEDS: PULMICORT IH SCH ×2 (07:12→20:50)
[2017-06-02] MEDS: ELIQUIS PO SCH ×2 (10:17→22:47)
[2017-06-02] MEDS: COREG PO SCH ×2 (10:17→22:47)
[2017-06-02] MEDS: XANAX PO PRN (10:20)
--- NOTE | 2017-06-02 10:36 | Progress Note ---
Assessment and Plan Shortness of breath COPD Hypertension Paroxysmal Afib on eliquis and flecainide as an outpatient Presence of Cardiac Pacemaker ([employer]) s/p atrial lead replacement at [facility] 03/2017 Conservative cardiac management. Subjective Date of service: 06/02/17 Interval history: Patient reports her breathing is better. Objective Vital Signs Temp Pulse Pulse Resp Resp BP Pulse Ox 06/02/17 08:00 88 06/02/17 07:32 85 20 06/02/17 07:30 97.3 F L 66 17 144/65 92 06/02/17 07:11 65 20 100 06/02/17 04:19 97.9 F 82 18 154/79 93 06/01/17 23:40 98.2 F 84 18 162/82 95 06/01/17 22:50 84 140/67 06/01/17 22:04 95 06/01/17 22:00 20 95 06/01/17 20:00 84 88 18 06/01/17 19:41 98.3 F 84 18 140/67 95 06/01/17 13:19 98.8 F 81 18 128/59 94 - Physical Examination General: No Apparent Distress HEENT: Positive: PERRL Cardiac: Positive: Other (paced) Lungs: Positive: Decreased Breath Sounds Neuro: Positive: Grossly Intact - Labs and Meds CBC 06/02/17 Range/Units 04:39 WBC 4.8 (4.5-11.0) K/mm3 RBC 3.09 L (3.65-5.03) M/mm3 Hgb 9.2 L (10.1-14.3) gm/dl Hct 26.2 L (30.3-42.9) % Plt Count 157 (140-440) K/mm3 Lymph # 0.9 L (1.2-5.4) K/mm3 [place] # 0.5 (0.0-0.8) K/mm3 Eos # 0.0 (0.0-0.4) K/mm3 Baso # 0.0 (0.0-0.1) K/mm3 Comprehensive Metabolic Panel 06/02/17 Range/Units 04:39 Sodium 144 (137-145) mmol/L Potassium 3.2 L D (3.6-5.0) mmol/L Chloride 96.7 L (98-107) mmol/L Carbon Dioxide 32 H (22-30) mmol/L BUN 36 H (7-17) mg/dL Creatinine 1.3 H (0.7-1.2) mg/dL Glucose 134 H (65-100) mg/dL Calcium 9.5 (8.4-10.2) mg/dL - Imaging and Cardiology EKG: image reviewed
--- NOTE | 2017-06-02 14:00 | Progress Note ---
Assessment and Plan Assessment and plan: Patient is a 71-year-old woman with a plethora of comorbidities including CHF, COPD, atrial fibrillation, sick sinus syndrome who presents with shortness of breath. Two-view chest x-ray showed left lower lobe subsegmental atelectasis and possible small right pleural effusion, no CHF or pneumonia. -Acute hypoxic respiratory failure, poa, O2 wean off -Acute and chronic CHF: cardiology is following -Acute renal insufficiency/ckd 3, vasomotor nephro, poa -COPD: consult pulmonology -Hypertension with diastolic heart disease: continue antihypertensive, cardiac diet -A. fib: on Eliquis and flecanide -Hypokalemia: replace and recheck in am -mild malnutrition: consult invoice checker Plan Admit to medicine Diurese with IV Lasix Continue beta gary, aspirin, checked cardiac enzymes, echo done, consulted cardiology Continue appropriate outpatient medications DVT prophylaxis with eliquis per Cardiology, Dr. Guajardo: "Patient's echocardiogram shows normal left ventricular systolic function, ejection fraction 60-65%, mild to moderate mitral regurgitation. Cardiology workup is completed, recommend pulmonary evaluation of shortness of breath and hypoxemia." consulted Pulmonology History Interval history: Patient was seen and examined. Follow-up on current diagnosis/shortness of breath symptoms. Overnight uneventful. Patient denies any chest pain, nausea/ vomiting or severe headaches. Imaging, nursing note, chart, labs and old chart reviewed. Discussed with patient. Hospitalist Physical - Physical exam Narrative exam: GEN: WDWN, NAD, AWAKE, ALERT, ORIENTATED 3 HEENT: NCAT, EOMI, PERRL, OP Clear NECK: supple, no adenopathy, no thyromegaly, no JVD CVS/HEART: RRR, NORMAL S1S2, NO JVD, pulses present bilaterally CHEST/LUNGS: Symmetrical chest expansion, diminished breath sounds but adequate air entry bilaterally GI/Abdomen: soft, NTND, good bowel sounds, no guarding or rebound /Bladder: no suprapubic tenderness, no CVA or paraspinal tenderness EXT/Skin: no new c/c/e./rash MSK: FROM x 4 Neuro: CN 2-12 grossly intact, no new focal deficits Psych: calm - Constitutional Vitals: Temp Pulse Resp BP Pulse Ox 98.9 F 78 17 136/70 95 06/02/17 11:33 06/02/17 11:33 06/02/17 11:33 06/02/17 11:33 06/02/17 11:33 General appearance: Present: no acute distress Results - Labs CBC & Chem 7: 06/02/17 04:39 06/02/17 04:39 Labs: Laboratory Last Values WBC 4.8 K/mm3 (4.5-11.0) 06/02/17 04:39 RBC 3.09 M/mm3 (3.65-5.03) L 06/02/17 04:39 Hgb 9.2 gm/dl (10.1-14.3) L 06/02/17 04:39 Hct 26.2 % (30.3-42.9) L 06/02/17 04:39 MCV 85 fl (79-97) 06/02/17 04:39 MCH 30 pg (28-32) 06/02/17 04:39 MCHC 35 % (30-34) H 06/02/17 04:39 RDW 15.9 % (13.2-15.2) H 06/02/17 04:39 Plt Count 157 K/mm3 (140-440) 06/02/17 04:39 Lymph % (Auto) 19.6 % (13.4-35.0) 06/02/17 04:39 [place] % (Auto) 10.8 % (0.0-7.3) H 06/02/17 04:39 Eos % (Auto) 0.1 % (0.0-4.3) 06/02/17 04:39 Baso % (Auto) 0.3 % (0.0-1.8) 06/02/17 04:39 Lymph # 0.9 K/mm3 (1.2-5.4) L 06/02/17 04:39 [place] # 0.5 K/mm3 (0.0-0.8) 06/02/17 04:39 Eos # 0.0 K/mm3 (0.0-0.4) 06/02/17 04:39 Baso # 0.0 K/mm3 (0.0-0.1) 06/02/17 04:39 Seg Neutrophils % 69.2 % (40.0-70.0) 06/02/17 04:39 Seg Neutrophils # 3.3 K/mm3 (1.8-7.7) 06/02/17 04:39 PT 14.2 Sec. (12.2-14.9) 05/31/17 12:43 INR 1.05 (0.87-1.13) 05/31/17 12:43 D-Dimer 297.20 ng/mlDDU (0-234) H 05/31/17 21:51 VBG pH 7.255 (7.320-7.420) L 05/31/17 12:43 Sodium 144 mmol/L (137-145) 06/02/17 04:39 Potassium 3.2 mmol/L (3.6-5.0) L D 06/02/17 04:39 Chloride 96.7 mmol/L (98-107) L 06/02/17 04:39 Carbon Dioxide 32 mmol/L (22-30) H 06/02/17 04:39 Anion Gap 19 mmol/L 06/02/17 04:39 BUN 36 mg/dL (7-17) H 06/02/17 04:39 Creatinine 1.3 mg/dL (0.7-1.2) H 06/02/17 04:39 Estimated GFR 40 ml/min 06/02/17 04:39 BUN/Creatinine Ratio 28 % 06/02/17 04:39 Glucose 134 mg/dL (65-100) H 06/02/17 04:39 Lactic Acid 0.70 mmol/L (0.7-2.0) 05/31/17 17:12 Calcium 9.5 mg/dL (8.4-10.2) 06/02/17 04:39 Total Bilirubin 0.20 mg/dL (0.1-1.2) 05/31/17 12:43 AST 49 units/L (5-40) H 05/31/17 12:43 ALT 81 units/L (7-56) H 05/31/17 12:43 Alkaline Phosphatase 176 units/L (35-129) H 05/31/17 12:43 Total Creatine Kinase 29 units/L (30-135) L 05/31/17 21:51 CK-MB (CK-2) 2.2 ng/mL (0.0-4.0) 05/31/17 21:51 CK-MB (CK-2) Rel Index 7.5 (0-4) H 05/31/17 21:51 Troponin T < 0.010 ng/mL (0.00-0.029) 05/31/17 21:51 NT-Pro-B Natriuret Pep 1613 pg/mL (0-900) H 05/31/17 21:51 Total Protein 6.2 g/dL (6.3-8.2) L 05/31/17 12:43 Albumin 3.5 g/dL (3.9-5) L 05/31/17 12:43 Albumin/Globulin Ratio 1.3 % 05/31/17 12:43 Urine Color Straw (Yellow) 05/31/17 22:46 Urine Turbidity Clear (Clear) 05/31/17 22:46 Urine pH 5.0 (5.0-7.0) 05/31/17 22:46 Ur Specific [place] 1.010 (1.003-1.030) 05/31/17 22:46 Urine Protein <15 mg/dl mg/dL (Negative) 05/31/17 22:46 Urine Glucose (UA) Neg mg/dL (Negative) 05/31/17 22:46 Urine Ketones Neg mg/dL (Negative) 05/31/17 22:46 Urine Blood Neg (Negative) 05/31/17 22:46 Urine Nitrite Neg (Negative) 05/31/17 22:46 Urine Bilirubin Neg (Negative) 05/31/17 22:46 Urine Urobilinogen < 2.0 mg/dL (<2.0) 05/31/17 22:46 Ur Leukocyte Esterase Tr (Negative) 05/31/17 22:46 Urine WBC (Auto) 9.0 /HPF (0.0-6.0) H 05/31/17 22:46 Urine RBC (Auto) 1.0 /HPF (0.0-6.0) 05/31/17 22:46 U Epithel Cells (Auto) < 1.0 /HPF (0-13.0) 05/31/17 22:46 Urine Bacteria (Auto) 1+ /HPF (Negative) 05/31/17 22:46
[2017-06-02] MEDS ORDERED: K-DUR PO ONE ×2 (14:01→19:00)
--- NOTE | 2017-06-02 19:15 | Event Note ---
Date: 06/02/[address] WADE THANK YOU FOR ASKING US TO PARTICIPATE IN THE CARE OF THIS PATIENT. This is 71 year old white female admitted with shortness of breath and peripheral edema. Patient has history of CHF ,atrial fibrillation , COPD, Hypertension and renal insufficiency.Chest xray showed left lower lobe subsegmental atelectasis and possible small right pleural effusion.Patient has elevated D Dimer and elelvated Pro BNP. Patient on Eliquis. Obtaining venous doppler studies of legs and ventilation/Perfusion lung scan. Impression: 1. CHF Exacerbation. 2. Cardiac arrythmia, S/P defibrillator implantation. 3. Hypertension 4. COPD 5. Renal insufficiency. 6. Peripheral edema. PLAN : 1. O2 2 litres via nasal canula. 2. Brovanna/Budesonide aerosol treatments q 12 hours. 3. Venous doppler studies of legs. 4. Ventilaton and perfusion lung scan. 5. Continue Eliquis. 4. Ultrasound of chest.
[2017-06-02] MEDS: TAMBOCOR PO SCH (22:47)
[2017-06-03 06:04] LABS: Hematocrit 28.9 % (30.3-42.9); Hemoglobin 9.9 gm/dl (10.1-14.3); Mean Corpuscular HGB Conc 34 % (30-34); Mean Corpuscular Hemoglobin 29 pg (28-32); Mean Corpuscular Volume 86 fl (79-97); Platelet Count 150 K/mm3 (140-440); Red Blood Count 3.37 M/mm3 (3.65-5.03); Red Cell Distribution Width 16.4 % (13.2-15.2); White Blood Count 3.7 K/mm3 (4.5-11.0)
[2017-06-03 06:22] LABS: Calcium 9.6 mg/dL (8.4-10.2); Magnesium 1.9 mg/dL (1.7-2.3)
[2017-06-03 06:23] LABS: Chloride 96.1 mmol/L (98-107); Potassium 3.4 mmol/L (3.6-5.0)
[2017-06-03] MEDS: NEURONTIN PO SCH ×3 (06:41→21:47)
[2017-06-03] MEDS: LASIX IV SCH ×3 (06:41→18:04)
--- NOTE | 2017-06-03 09:21 | Progress Note ---
Assessment and Plan Shortness of breath/Hypoxia COPD Hypertension Paroxysmal Afib on eliquis and flecainide as an outpatient Presence of Cardiac Pacemaker ([employer]) s/p atrial lead replacement at [facility] 03/2017 Echocardiogram: normal left ventricular systolic function, ejection fraction 60- 65%, mild to moderate mitral regurgitation. Conservative cardiac management. Subjective Date of service: 06/03/17 Interval history: Patient denies chest pain and shortness of breath. Objective Vital Signs Temp Pulse Pulse Resp Resp BP Pulse Ox 06/03/17 08:00 74 06/03/17 07:29 97.7 F 69 18 160/83 98 06/03/17 04:28 98.3 F 69 18 137/63 90 06/03/17 00:28 98.3 F 71 18 132/61 94 06/02/17 22:47 76 137/66 06/02/17 22:00 18 06/02/17 21:06 75 20 06/02/17 20:51 70 20 06/02/17 20:00 71 06/02/17 19:57 98.6 F 76 18 137/66 98 06/02/17 16:19 75 18 118/65 94 06/02/17 11:33 98.9 F 78 17 136/70 95 - Physical Examination General: No Apparent Distress HEENT: Positive: PERRL Cardiac: Positive: Reg Rate and Rhythm Lungs: Positive: Decreased Breath Sounds Neuro: Positive: Grossly Intact Extremities: Absent: edema - Labs and Meds CBC 06/03/17 Range/Units 05:05 WBC 3.7 L (4.5-11.0) K/mm3 RBC 3.37 L (3.65-5.03) M/mm3 Hgb 9.9 L (10.1-14.3) gm/dl Hct 28.9 L (30.3-42.9) % Plt Count 150 (140-440) K/mm3 Comprehensive Metabolic Panel 06/03/17 Range/Units 05:05 Sodium 143 (137-145) mmol/L Potassium 3.4 L (3.6-5.0) mmol/L Chloride 96.1 L (98-107) mmol/L Carbon Dioxide 36 H (22-30) mmol/L BUN 39 H (7-17) mg/dL Creatinine 1.4 H (0.7-1.2) mg/dL Glucose 95 (65-100) mg/dL Calcium 9.6 (8.4-10.2) mg/dL - Imaging and Cardiology EKG: image reviewed
[2017-06-03] MEDS: PULMICORT IH SCH ×2 (09:47→20:25)
[2017-06-03] MEDS: BROVANA NEBU IH SCH ×2 (09:47→20:25)
[2017-06-03] MEDS: COREG PO SCH ×2 (10:31→21:47)
[2017-06-03] MEDS: PERCOCET 5/325 PO PRN (10:31)
[2017-06-03] MEDS: ELIQUIS PO SCH ×2 (10:31→21:47)
[2017-06-03] MEDS: TAMBOCOR PO SCH ×2 (10:31→21:47)
[2017-06-03] MEDS: XANAX PO PRN (10:31)
--- NOTE | 2017-06-03 11:34 | Nuclear Medicine Report ---
Nuclear medicine ventilation/perfusion lung scan. History: Shortness of breath elevated d-dimer, and peripheral edema. Findings: The ventilation study demonstrates decreased uptake in the left lower lung zone on the ventilation phase. The remainder of the lung castle is normal on the inhalation and equilibrium phase. However there is marked abnormal air trapping, most pronounced in the left lung in the lower lung zone although mild air trapping is seen in the mid and upper lungs on on the left. There is also significant air trapping in the lower lung zone on the right. The perfusion study demonstrates matching defects in the left lower and upper lung zones. No significant additional perfusion defects are seen. Impression: Matching ventilation/perfusion defects consistent with a low probability of embolic disease. Evidence of COPD.
--- NOTE | 2017-06-03 13:22 | XRay Report ---
AP CHEST :06/03/17 CLINICAL: Shortness of breath. COMPARISON:05/31/17 FINDINGS: Cardiomegaly with pacer leads in heart.Normal pulmonary vessels. The lungs are better expanded. No airspace disease. Continued blunting of the costophrenic angles. IMPRESSION: Cardiomegaly but no CHF. Bilateral small pleural effusions versus pleural scarring.
--- NOTE | 2017-06-03 15:18 | Ultrasound Report ---
ULTRASOUND BILATERAL CHEST: 06/03/17 09:29:00 CLINICAL: Questionable small pleural effusions on chest x-ray. FINDINGS: Ultrasound demonstrated no right pleural effusion and minimal left pleural fluid with a calculated volume = 3 cc. IMPRESSION: Tiny left pleural effusion and no right pleural effusion.
--- NOTE | 2017-06-03 16:59 | Progress Note ---
Assessment and Plan Assessment and plan: Patient is a 71-year-old woman with a plethora of comorbidities including CHF, COPD, atrial fibrillation, sick sinus syndrome who presents with shortness of breath. Two-view chest x-ray showed left lower lobe subsegmental atelectasis and possible small right pleural effusion, no CHF or pneumonia. -Acute hypoxic respiratory failure, poa, O2 wean off, Nebs, LABA, ICS -Acute and chronic Diastolic CHF: cardiology is following, appears more pulmonary than cardiac, continue lasix, daily weights, fluid restriants -Acute renal insufficiency/ckd 3, vasomotor nephro, poa -COPD: consult pulmonology -Hypertension with diastolic heart disease: continue antihypertensive, cardiac diet -A. fib: on Eliquis and flecanide -Hypokalemia: replace and recheck in am -mild malnutrition: consult woodenware assembler -DVT/GI prophy Plan of care discussed with the patient, anticipate discharge in am History Interval history: Patient seen and examined today, in no acute distress. reports improvement in symptoms Hospitalist Physical - Physical exam Narrative exam: GEN: WDWN, NAD, AWAKE, ALERT, ORIENTATED 3, Obese HEENT: NCAT, EOMI, PERRL, OP Clear NECK: supple, no adenopathy, no thyromegaly, no JVD CVS/HEART: RRR, NORMAL S1S2, NO JVD, pulses present bilaterally CHEST/LUNGS: Symmetrical chest expansion, diminished breath sounds bilaterally GI/Abdomen: soft, NTND, good bowel sounds, no guarding or rebound /Bladder: no suprapubic tenderness, no CVA or paraspinal tenderness EXT/Skin: no new c/c/e./rash MSK: FROM x 4 Neuro: CN 2-12 grossly intact, no new focal deficits Psych: calm - Constitutional Vitals: Temp Pulse Resp BP Pulse Ox 97.3 F L 68 18 145/76 98 06/03/17 12:38 06/03/17 12:38 06/03/17 12:38 06/03/17 12:38 06/03/17 07:29 General appearance: Present: no acute distress Results - Labs CBC & Chem 7: 06/03/17 05:05 06/03/17 05:05 Labs: Laboratory Last Values WBC 3.7 K/mm3 (4.5-11.0) L 06/03/17 05:05 RBC 3.37 M/mm3 (3.65-5.03) L 06/03/17 05:05 Hgb 9.9 gm/dl (10.1-14.3) L 06/03/17 05:05 Hct 28.9 % (30.3-42.9) L 06/03/17 05:05 MCV 86 fl (79-97) 06/03/17 05:05 MCH 29 pg (28-32) 06/03/17 05:05 MCHC 34 % (30-34) 06/03/17 05:05 RDW 16.4 % (13.2-15.2) H 06/03/17 05:05 Plt Count 150 K/mm3 (140-440) 06/03/17 05:05 Lymph % (Auto) 19.6 % (13.4-35.0) 06/02/17 04:39 [place] % (Auto) 10.8 % (0.0-7.3) H 06/02/17 04:39 Eos % (Auto) 0.1 % (0.0-4.3) 06/02/17 04:39 Baso % (Auto) 0.3 % (0.0-1.8) 06/02/17 04:39 Lymph # 0.9 K/mm3 (1.2-5.4) L 06/02/17 04:39 [place] # 0.5 K/mm3 (0.0-0.8) 06/02/17 04:39 Eos # 0.0 K/mm3 (0.0-0.4) 06/02/17 04:39 Baso # 0.0 K/mm3 (0.0-0.1) 06/02/17 04:39 Seg Neutrophils % 69.2 % (40.0-70.0) 06/02/17 04:39 Seg Neutrophils # 3.3 K/mm3 (1.8-7.7) 06/02/17 04:39 PT 14.2 Sec. (12.2-14.9) 05/31/17 12:43 INR 1.05 (0.87-1.13) 05/31/17 12:43 D-Dimer 297.20 ng/mlDDU (0-234) H 05/31/17 21:51 VBG pH 7.255 (7.320-7.420) L 05/31/17 12:43 Sodium 143 mmol/L (137-145) 06/03/17 05:05 Potassium 3.4 mmol/L (3.6-5.0) L 06/03/17 05:05 Chloride 96.1 mmol/L (98-107) L 06/03/17 05:05 Carbon Dioxide 36 mmol/L (22-30) H 06/03/17 05:05 Anion Gap 14 mmol/L 06/03/17 05:05 BUN 39 mg/dL (7-17) H 06/03/17 05:05 Creatinine 1.4 mg/dL (0.7-1.2) H 06/03/17 05:05 Estimated GFR 37 ml/min 06/03/17 05:05 BUN/Creatinine Ratio 28 % 06/03/17 05:05 Glucose 95 mg/dL (65-100) 06/03/17 05:05 Lactic Acid 0.70 mmol/L (0.7-2.0) 05/31/17 17:12 Calcium 9.6 mg/dL (8.4-10.2) 06/03/17 05:05 Magnesium 1.90 mg/dL (1.7-2.3) 06/03/17 05:05 Total Bilirubin 0.20 mg/dL (0.1-1.2) 05/31/17 12:43 AST 49 units/L (5-40) H 05/31/17 12:43 ALT 81 units/L (7-56) H 05/31/17 12:43 Alkaline Phosphatase 176 units/L (35-129) H 05/31/17 12:43 Total Creatine Kinase 29 units/L (30-135) L 05/31/17 21:51 CK-MB (CK-2) 2.2 ng/mL (0.0-4.0) 05/31/17 21:51 CK-MB (CK-2) Rel Index 7.5 (0-4) H 05/31/17 21:51 Troponin T < 0.010 ng/mL (0.00-0.029) 05/31/17 21:51 NT-Pro-B Natriuret Pep 1613 pg/mL (0-900) H 05/31/17 21:51 Total Protein 6.2 g/dL (6.3-8.2) L 05/31/17 12:43 Albumin 3.5 g/dL (3.9-5) L 05/31/17 12:43 Albumin/Globulin Ratio 1.3 % 05/31/17 12:43 Urine Color Straw (Yellow) 05/31/17 22:46 Urine Turbidity Clear (Clear) 05/31/17 22:46 Urine pH 5.0 (5.0-7.0) 05/31/17 22:46 Ur Specific [place] 1.010 (1.003-1.030) 05/31/17 22:46 Urine Protein <15 mg/dl mg/dL (Negative) 05/31/17 22:46 Urine Glucose (UA) Neg mg/dL (Negative) 05/31/17 22:46 Urine Ketones Neg mg/dL (Negative) 05/31/17 22:46 Urine Blood Neg (Negative) 05/31/17 22:46 Urine Nitrite Neg (Negative) 05/31/17 22:46 Urine Bilirubin Neg (Negative) 05/31/17 22:46 Urine Urobilinogen < 2.0 mg/dL (<2.0) 05/31/17 22:46 Ur Leukocyte Esterase Tr (Negative) 05/31/17 22:46 Urine WBC (Auto) 9.0 /HPF (0.0-6.0) H 05/31/17 22:46 Urine RBC (Auto) 1.0 /HPF (0.0-6.0) 05/31/17 22:46 U Epithel Cells (Auto) < 1.0 /HPF (0-13.0) 05/31/17 22:46 Urine Bacteria (Auto) 1+ /HPF (Negative) 05/31/17 22:46 - Imaging and Cardiology Chest x-ray: image reviewed (pleural effusion, very mild)
--- NOTE | 2017-06-03 20:59 | Progress Note ---
Assessment and Plan Patient resting on room air at this time. Not keeping her O2 as ordered.O2 saturation reported 100%. No acute respiratory distress at rest. V/Q scan reported low probability for pulmonary emboli. - Patient Problems (1) COPD exacerbation Current Visit: Yes Status: Acute Plan to address problem: O2 2 litres via nasal canula. Brovanna/Budesonide aerosol treatments q 12 hours. (2) CHF (congestive heart failure) Current Visit: Yes Status: Chronic Qualifiers: Plan to address problem: Management as per cardiology. (3) Hypertension Current Visit: No Status: Chronic Qualifiers: Hypertension type: essential hypertension Qualified Code(s): I10 - Essential (primary) hypertension Plan to address problem: Management as per primary care. (4) Acute kidney injury Current Visit: No Status: Resolved Plan to address problem: Management as per nephrology. (5) Atrial fibrillation Current Visit: No Status: Chronic Qualifiers: Atrial fibrillation type: chronic Qualified Code(s): I48.2 - Chronic atrial fibrillation Plan to address problem: Management as per cardiology. Subjective Date of service: 06/03/17 Interval history: Patient resting on room air at this time. Not keeping her O2 as ordered.O2 saturation reported 100%. No acute respiratory distress at rest. V/Q scan reported low probability for pulmonary emboli. Objective Vital Signs - 12hr 06/03/17 06/03/17 06/03/17 09:48 09:59 12:38 Temperature 97.3 F L Pulse Rate 68 Pulse Rate [ 83 84 Anterior Bilateral Throughout] Respiratory 18 Rate Respiratory 20 16 Rate [Anterior Bilateral Throughout] Blood Pressure 145/76 [Left] Blood Pressure 145/76 [Right] Constitutional: no acute distress, alert Eyes: non-icteric ENT: oropharynx moist Neck: supple, no lymphadenopathy Ascultation: Bilateral: diminished breath sounds Cardiovascular: irregular rhythm Gastrointestinal: normoactive bowel sounds, soft, non-tender Integumentary: normal Extremities: no cyanosis, edema Neurologic: normal mental status, non-focal exam, pupils equal and round, CN II- XII normal Psychiatric: depressed CBC and BMP: 06/03/17 05:05 06/03/17 05:05 ABG, PT/INR, D-dimer: PT/INR, D-dimer PT 14.2 Sec. (12.2-14.9) 05/31/17 12:43 INR 1.05 (0.87-1.13) 05/31/17 12:43 D-Dimer 297.20 ng/mlDDU (0-234) H 05/31/17 21:51 Abnormal lab findings: Abnormal Labs 05/31/17 05/31/17 05/31/17 12:43 12:43 12:43 WBC RBC 3.23 L Hgb 9.5 L Hct 28.3 L MCHC RDW 16.2 H Page % (Auto) 10.7 H Lymph # D-Dimer VBG pH Potassium Chloride Carbon Dioxide BUN 31 H Creatinine 1.6 H Glucose AST 49 H ALT 81 H Alkaline Phosphatase 176 H Total Creatine Kinase CK-MB (CK-2) Rel Index NT-Pro-B Natriuret Pep 1705 H Total Protein 6.2 L Albumin 3.5 L Urine WBC (Auto) 05/31/17 05/31/17 05/31/17 12:43 21:51 21:51 WBC RBC Hgb Hct MCHC RDW Page % (Auto) Lymph # D-Dimer 297.20 H VBG pH 7.255 L Potassium Chloride Carbon Dioxide BUN Creatinine Glucose AST ALT Alkaline Phosphatase Total Creatine Kinase 29 L CK-MB (CK-2) Rel Index 7.5 H NT-Pro-B Natriuret Pep 1613 H Total Protein Albumin Urine WBC (Auto) 05/31/17 06/02/17 06/02/17 22:46 04:39 04:39 WBC RBC 3.09 L Hgb 9.2 L Hct 26.2 L MCHC 35 H RDW 15.9 H Page % (Auto) 10.8 H Lymph # 0.9 L D-Dimer VBG pH Potassium 3.2 L D Chloride 96.7 L Carbon Dioxide 32 H BUN 36 H Creatinine 1.3 H Glucose 134 H AST ALT Alkaline Phosphatase Total Creatine Kinase CK-MB (CK-2) Rel Index NT-Pro-B Natriuret Pep Total Protein Albumin Urine WBC (Auto) 9.0 H 06/03/17 06/03/17 05:05 05:05 WBC 3.7 L RBC 3.37 L Hgb 9.9 L Hct 28.9 L MCHC RDW 16.4 H Page % (Auto) Lymph # D-Dimer VBG pH Potassium 3.4 L Chloride 96.1 L Carbon Dioxide 36 H BUN 39 H Creatinine 1.4 H Glucose AST ALT Alkaline Phosphatase Total Creatine Kinase CK-MB (CK-2) Rel Index NT-Pro-B Natriuret Pep Total Protein Albumin Urine WBC (Auto) Chest x-ray: report reviewed (Cardiomegaly, No CHF, Small pleural effusions.), image reviewed Additional Studies: V/Q scan reported Low probability for Pulmonary emboli.
[2017-06-04 06:14] LABS: Hematocrit 29.6 % (30.3-42.9); Hemoglobin 9.9 gm/dl (10.1-14.3); Mean Corpuscular HGB Conc 34 % (30-34); Mean Corpuscular Hemoglobin 28 pg (28-32); Mean Corpuscular Volume 85 fl (79-97); Platelet Count 160 K/mm3 (140-440); Red Blood Count 3.49 M/mm3 (3.65-5.03); Red Cell Distribution Width 15.8 % (13.2-15.2); White Blood Count 3.3 K/mm3 (4.5-11.0)
[2017-06-04 06:29] LABS: Calcium 9.2 mg/dL (8.4-10.2); Potassium 3.6 mmol/L (3.6-5.0)
[2017-06-04] MEDS: LASIX IV SCH (06:30)
[2017-06-04] MEDS: NEURONTIN PO SCH ×2 (06:31→13:40)
[2017-06-04] MEDS: PULMICORT IH SCH (08:15)
[2017-06-04] MEDS: BROVANA NEBU IH SCH (08:15)
--- NOTE | 2017-06-04 09:40 | Progress Note ---
Assessment and Plan Shortness of breath/Hypoxia COPD Hypertension Paroxysmal Afib on eliquis and flecainide as an outpatient Presence of Cardiac Pacemaker ([facility]) s/p atrial lead replacement at [facility] 03/2017 Echocardiogram: normal left ventricular systolic function, ejection fraction 60- 65%, mild to moderate mitral regurgitation. Recommendations: Discontinue IV lasix (patient is euvolemic on exam). May go home cardiac zarate Follow-up with [facility] as outpatient Subjective Date of service: 06/04/17 Principal diagnosis: COPD Interval history: Patient denies chest pain, SOB has improved. Objective Vital Signs Temp Pulse Pulse Resp Resp BP BP 06/04/17 08:28 98.2 F 68 18 06/04/17 04:17 98.6 F 75 18 133/80 06/03/17 23:53 98.4 F 70 18 129/70 06/03/17 20:30 79 18 06/03/17 20:27 98.6 F 78 18 123/74 06/03/17 20:20 77 18 06/03/17 20:00 69 06/03/17 12:38 97.3 F L 68 18 145/76 06/03/17 12:30 97.3 F L 67 18 145/76 06/03/17 09:59 84 16 06/03/17 09:48 83 20 BP Pulse Ox 06/04/17 08:28 135/72 94 06/04/17 04:17 94 06/03/17 23:53 94 06/03/17 20:30 06/03/17 20:27 95 06/03/17 20:20 06/03/17 20:00 06/03/17 12:38 145/76 06/03/17 12:30 97 06/03/17 09:59 06/03/17 09:48 - Physical Examination General: No Apparent Distress HEENT: Positive: PERRL Neck: Positive: neck supple Cardiac: Positive: Reg Rate and Rhythm Lungs: Positive: Normal Exam Neuro: Positive: Grossly Intact Abdomen: Positive: Soft Skin: Positive: Clear Extremities: Absent: edema - Labs and Meds CBC 06/04/17 Range/Units 04:55 WBC 3.3 L (4.5-11.0) K/mm3 RBC 3.49 L (3.65-5.03) M/mm3 Hgb 9.9 L (10.1-14.3) gm/dl Hct 29.6 L (30.3-42.9) % Plt Count 160 (140-440) K/mm3 Comprehensive Metabolic Panel 06/04/17 Range/Units 04:55 Sodium 143 (137-145) mmol/L Potassium 3.6 (3.6-5.0) mmol/L Chloride 96.0 L (98-107) mmol/L Carbon Dioxide 34 H (22-30) mmol/L BUN 38 H (7-17) mg/dL Creatinine 1.6 H (0.7-1.2) mg/dL Glucose 93 (65-100) mg/dL Calcium 9.2 (8.4-10.2) mg/dL - Imaging and Cardiology EKG: image reviewed
[2017-06-04] MEDS: TAMBOCOR PO SCH (09:53)
[2017-06-04] MEDS: ELIQUIS PO SCH (09:54)
[2017-06-04] MEDS: COREG PO SCH (09:54)
[2017-06-04] MEDS: XANAX PO PRN (09:58)
[2017-06-04] MEDS: PERCOCET 5/325 PO PRN (09:58)
--- NOTE | 2017-06-04 10:44 | Discharge Summary ---
Providers - Providers Date of Admission: 05/31/17 23:59 Attending physician: TISH SHEPPARD MD 06/01/17 01:01 Consult to Physician [CONS] Routine Consulting Provider: ARELI ROWE Reason For Exam: chf Place consult to:: Dr. Rowe Notified:: Mary Kay GRIMES Phone number called:: Was contact made?: Yes If yes, spoke with:: [facility] Time called:: 08:10 06/02/17 09:37 Consult to Physician [CONS] Routine Consulting Provider: MELONIE TOVAR Reason For Exam: COPD Place consult to:: pulmonary Notified:: office Phone number called:: [phone] Was contact made?: Yes Time called:: 09:45 Comment:: pt known to you 06/02/17 14:01 Consult to Dietitian/Nutrition [CONS] Routine Physician Instructions: Reason For Exam: Reason for Consult: Malnutrition Primary care physician: PIN ATTACHER Hospitalization Reason for admission: shortness of breath Condition: Stable Hospital course: Patient is a 71-year-old woman with a plethora of comorbidities including CHF, COPD, atrial fibrillation, sick sinus syndrome who presents with shortness of breath. Two-view chest x-ray showed left lower lobe subsegmental atelectasis and possible small right pleural effusion, no CHF or pneumonia. Patient was treated with IV abx and nebulizer with oxygen. she also received steriods, and was seen by pulmonary. today is doing better and is stable for discharge. -Acute hypoxic respiratory failure -Acute and chronic Diastolic CHF -Acute renal insufficiency/ckd 3, vasomotor -COPD -Hypertension with diastolic heart disease -A. fib -Hypokalemia -mild malnutrition Disposition: [id number]/[place]-[facility] Time spent for discharge: 35 mins Core Measure Documentation - Palliative Care Palliative Care/ Comfort Measures: Not Applicable - Core Measures Any of the following diagnoses?: none - VTE Discharge Requirements Deep Vein Thrombosis/Pulmonary Embolism Present on Admission: No Exam - Physical Exam Narrative exam: GEN: WDWN, NAD, AWAKE, ALERT, ORIENTATED 3, Obese HEENT: NCAT, EOMI, PERRL, OP Clear NECK: supple, no adenopathy, no thyromegaly, no JVD CVS/HEART: RRR, NORMAL S1S2, NO JVD, pulses present bilaterally CHEST/LUNGS: Symmetrical chest expansion, diminished breath sounds bilaterally GI/Abdomen: soft, NTND, good bowel sounds, no guarding or rebound /Bladder: no suprapubic tenderness, no CVA or paraspinal tenderness EXT/Skin: no new c/c/e./rash MSK: FROM x 4 Neuro: CN 2-12 grossly intact, no new focal deficits Psych: calm - Constitutional Vitals: Temp Pulse Resp BP Pulse Ox 98.2 F 68 18 135/72 94 06/04/17 08:28 06/04/17 09:54 06/04/17 08:28 06/04/17 09:54 06/04/17 08:28 Plan Activity: advance as tolerated, fall precautions Diet: low cholesterol Special Instructions: restrict fluid intake to (1200cc/day), record daily weights, record daily BP diary Follow up with: PRIMARY CARE, [Primary Care Provider] - 7 Days ARELI ROWE MD [Staff Physician] - 7 Days DEJA MENENDEZ MD [Staff Physician] - 7 Days MELONIE TOVAR MD [Staff Physician] - 7 Days Prescriptions: Prednisone [predniSONE 10 mg (6-Day Pack, 21 Tabs)] 10 mg PO .TAPER #1 tab.ds.pk
[2017-06-04 14:01] VITALS: BP 115/61
--- NOTE | 2017-06-04 16:54 | Vascular Lab Report ---
LOWER EXTREMITY VENOUS DUPLEX: REASON FOR EXAM: Swelling of the lower extremities. COMMENTS ON THE RIGHT: All veins visualized are freely compressible without evidence of internal echogenicity. Flow is spontaneous and phasic throughout. COMMENTS ON THE LEFT: Chronic recanalized thrombus noted in the femoral vein. The remaining veins visualized are freely compressible without evidence of internal echogenicity. Spontaneous and phasic flow is present proximally. IMPRESSION: Chronic DVT in the left lower extremity
== END 2017-06-04 14:32 | disposition home health service (06) | DRG 682 ==
LOC: ED 11:19 → 4A 23:59
PROVIDERS: ADMIT Internal Medicine; ATTEND Internal Medicine
DX: N17.0 Acute kidney failure with tubular necrosis (principal); J96.01 Acute respiratory failure with hypoxia; I50.33 Acute on chronic diastolic (congestive) heart failure; I13.2 Hypertensive heart and chronic kidney disease with heart failure and with stage 5 chronic kidney disease, or end stage renal disease; I82.592 Chronic embolism and thrombosis of other specified deep vein of left lower extremity; J44.1 Chronic obstructive pulmonary disease with (acute) exacerbation; E44.1 Mild protein-calorie malnutrition; J98.11 Atelectasis; I48.0 Paroxysmal atrial fibrillation; M06.9 Rheumatoid arthritis, unspecified; N18.3 Chronic kidney disease, stage 3 (moderate); I48.91 Unspecified atrial fibrillation; Z79.01 Long term (current) use of anticoagulants; Z99.81 Dependence on supplemental oxygen; Z79.899 Other long term (current) drug therapy; Z91.011 Allergy to milk products; Z88.5 Allergy status to narcotic agent; Z91.010 Allergy to peanuts; Z88.8 Allergy status to other drugs, medicaments and biological substances; Z91.018 Allergy to other foods; Z91.048 Other nonmedicinal substance allergy status; Z95.0 Presence of cardiac pacemaker; Z98.51 Tubal ligation status; Z85.828 Personal history of other malignant neoplasm of skin; Z79.2 Long term (current) use of antibiotics; Z82.49 Family history of ischemic heart disease and other diseases of the circulatory system; Z68.25 Body mass index [BMI] 25.0-25.9, adult
CPT/HCPCS: 36415; 71010; 71020; 76604; 78582; 80048; 80053; 81001; 82140; 82550; 82553; 82805; 83735; 83880; 84484; 85025; 85027; 85379; 85610; 87040; 87086; 93005; 93010; 93306; 93970; 94640; 96372; 96374; 99285; A9540; A9558; J1940; J2930

== ENCOUNTER 2017-07-11 13:51 | Emergency (ER) | payer MEDICARE ==
[2017-07-11 15:39] VITALS: BP 131/78
[2017-07-11 17:07] LABS: Hematocrit 30.5 % (30.3-42.9); Hemoglobin 10.6 gm/dl (10.1-14.3); Mean Corpuscular HGB Conc 35 % (30-34); Mean Corpuscular Hemoglobin 29 pg (28-32); Mean Corpuscular Volume 84 fl (79-97); Platelet Count 242 K/mm3 (140-440); Red Blood Count 3.62 M/mm3 (3.65-5.03); Red Cell Distribution Width 14.9 % (13.2-15.2)
[2017-07-11 17:22] LABS: Albumin 3.9 g/dL (3.9-5); Calcium 9.9 mg/dL (8.4-10.2)
== END 2017-07-11 20:05 | disposition left against medical advice (07) ==
LOC: ED 13:51
DX: Z53.21 Procedure and treatment not carried out due to patient leaving prior to being seen by health care provider (principal)
CPT/HCPCS: 36415; 80053; 83880; 85027

== ENCOUNTER 2017-08-06 11:31 | Emergency (ER) | payer MEDICARE ==
[2017-08-06 12:00] VITALS: BP 97/56
[2017-08-06 13:04] LABS: Basophils # (Auto) 0.1 K/mm3 (0.0-0.1); Basophils % (Auto) 1.1 % (0.0-1.8); Eosinophils # (Auto) 0.1 K/mm3 (0.0-0.4); Hematocrit 32.8 % (30.3-42.9); Hemoglobin 11.4 gm/dl (10.1-14.3); Lymphocytes # (Auto) 1.6 K/mm3 (1.2-5.4); Lymphocytes % (Auto) 22.7 % (13.4-35.0); Mean Corpuscular HGB Conc 35 % (30-34); Mean Corpuscular Hemoglobin 29 pg (28-32); Mean Corpuscular Volume 84 fl (79-97); Monocytes # (Auto) 0.7 K/mm3 (0.0-0.8); Monocytes % (Auto) 9.4 % (0.0-7.3); Platelet Count 162 K/mm3 (140-440); Red Blood Count 3.93 M/mm3 (3.65-5.03)
[2017-08-06 13:20] LABS: Calcium 9.1 mg/dL (8.4-10.2)
[2017-08-06 13:37] LABS: Chol/HDL Ratio 5.02 %
--- NOTE | 2017-08-06 14:25 | XRay Report ---
CHEST XRAY, 2 VIEWS: History: Shortness of breath. Findings: There is mild cardiomegaly. A 2-lead pacemaker device is in position. Pulmonary vessels are within normal limits. The lungs are clear and fully expanded. No infiltrate, pleural effusion or pneumothorax. Scoliosis is noted. No significant change since 06/03/17. IMPRESSION: Cardiomegaly.
== END 2017-08-06 16:05 | disposition left against medical advice (07) ==
LOC: ED 11:31
DX: R07.89 Other chest pain (principal); Z53.21 Procedure and treatment not carried out due to patient leaving prior to being seen by health care provider
CPT/HCPCS: 36415; 71046; 80048; 80061; 84484; 85025; 93005; 93010